=== PATIENT | female | born 1950 | race Caucasian/White ===

== ENCOUNTER → 2018-07-31 07:34 | Outpatient (CLI) | payer OTHER, SELFPAY ==
--- NOTE | 2018-07-31 08:11 | RAD_ITS ---
STUDY: X-RAY - ESOPHAGUS (BARIUM SWALLOW) WITH FLUOROSCOPY REASON FOR EXAM: Female, 67 years old. Dysphagia for solids. TECHNIQUE: 23 view(s) of the esophagus were obtained following swallowing of barium. FLUOROSCOPY TIME (if supplied): (1:06) minutes/seconds COMPARISON: None. FINDINGS: There is no demonstrated esophageal foreign body. There is no demonstrated stricture or mucosal abnormality. Normal gastroesophageal junction, without a demonstrated hiatal hernia. The patient ingested a 12 mm tablet of barium. The tablet is trapped at the level of the upper esophageal sphincter. There is atherosclerotic calcification of the aortic arch with tortuosity of the descending aorta. Normal visualized pulmonary parenchyma. Normal visualized osseous structures of the thorax. RAD/Esophagus Only IMPRESSION: The 12 mm tablet of barium is trapped at the origin of the esophagus at the level of the upper esophageal sphincter. Electronically Signed: Dave Booth, at 8:54 EDT , Service support ,
== END ==
PROVIDERS: Family Provider Family Medicine; PCP Family Medicine; Referring Provider Otolaryngology; Visit Provider Otolaryngology Otolaryngology/Facial Plastic Surgery
DX: R13.10 Dysphagia, unspecified (principal)
CPT/HCPCS: 74220

== ENCOUNTER → 2019-12-24 14:52 | Outpatient (CLI) | payer SELFPAY ==
--- NOTE | 2019-12-24 15:00 | EKG12_ITS ---
Test Reason : PREOP Blood Pressure : / mmHG Vent. Rate : 082 BPM Atrial Rate : 082 BPM P-R Int : 166 ms QRS Dur : 086 ms QT Int : 372 ms P-R-T Axes : 063 049 048 degrees QTc Int : 434 ms Normal sinus rhythm Normal ECG Confirmed by SAMY VALLEJO, JUANJO ([id number]), staff editor VIKY CHOWDHURY ([id number]) on 12/29/2019 9:23:54 AM Referred By: Avinash Thomson Confirmed By:JUANJO PABLO MD
--- NOTE | 2019-12-24 15:14 | RAD_ITS ---
STUDY: X-RAY CHEST REASON FOR EXAM: Female, 69 years old. Pt states pre op x-ray for future knee surgery TECHNIQUE: Frontal and lateral views of the chest. COMPARISON: None. FINDINGS: There is no focal consolidation. Normal size heart. Normal mediastinum and zechariah. Normal visualized pulmonary arteries. There is atherosclerotic calcification of the aortic arch with tortuosity. There are diffuse degenerative changes of the visualized thoracic spine. Normal visualized ribs, clavicles, and shoulders. There is no demonstrated abnormality of the visualized soft tissue structures of the upper abdomen. RAD/Chest PA and Lateral IMPRESSION: No acute cardiopulmonary process. Electronically Signed: Anju Leblanc MD at 17:41 EDT Tel , Service support ,
== END ==
PROVIDERS: PCP Family Medicine; Referring Provider Orthopaedic Surgery; Visit Provider Orthopaedic Surgery
DX: Z01.810 Encounter for preprocedural cardiovascular examination (principal); Z01.811 Encounter for preprocedural respiratory examination
CPT/HCPCS: 71046; 93005

== ENCOUNTER → 2021-11-11 | Outpatient (CLI) | payer SELFPAY, OTHER ==
--- NOTE | 2021-11-11 14:58 | ECHOD_ITS ---
Reason For Study: Murmur Procedure This was a 2D Doppler, Color Flow transthoracic echocardiogram. Exam performed in department. Left Ventricle Normal LV size. Left ventricular systolic function is normal. The estimated ejection fraction is 60 %. Stage 1 diastolic dysfunction. No regional wall motion abnormalities noted. Right Ventricle Normal RV size. Normal systolic function. Atria Normal left atrium. Normal right atrium. Mitral Valve Mild focal mitral valve calcification. Tricuspid Valve Normal tricuspid valve. Mild (1+) tricuspid valve insufficiency. Pulmonary artery systolic pressure is 38 mmHg. Aortic Valve Trisinus/trileaflet aortic valve. Mild focal aortic valve calcification. Peak aortic valve gradient 46 mmHg. Mean aortic valve gradient 25 mmHg. Mild aortic stenosis. Mild (1+) eccentric aortic valve insufficiency. Pulmonic Valve Normal pulmonic valve. Great Vessels Mildly dilated aortic root. The pulmonary artery is normal size. Normal inferior vena cava. Pericardium/Pleural No pericardial effusion. MMode/2D Measurements & Calculations LVIDd: 4.0 cm IVSd: 1.1 cm LVOT diam: 2.1 cm LVIDs: 2.4 cm LVPWd: 1.1 cm LVOT area: 3.6 cm2 RVDd: 3.2 cm FS: 39.5 % Ao root diam: 3.7 cm LAV(MOD-bp): 53.7 ml LVAd ap4: 25.9 cm2 ACS: 1.2 cm LAV(MOD-bp) Indexed: 26.1 ml/m2 LVLd ap4: 7.4 cm LAV(MOD-sp2): 54.8 ml EDV(MOD-sp4): 75.5 ml LAV(MOD-sp4): 46.9 ml EDV(sp4-el): 76.3 ml LVAs ap4: 14.1 cm2 LVLs ap4: 5.9 cm ESV(MOD-sp4): 28.2 ml ESV(sp4-el): 28.6 ml EF(MOD-sp4): 62.7 % EF(sp4-el): 62.5 % SV(MOD-sp4): 47.3 ml SV(sp4-el): 47.7 ml LA A4 area: 17.2 cm2 LA dimension(2D): 3.7 cm RA A4 area: 12.4 cm2 Doppler Measurements & Calculations MV E max dwaine: 75.9 cm/sec Lat Peak E' Dwaine: 7.6 cm/sec Med Peak E' Dwaine: 6.5 cm/sec MV A max dwaine: 97.4 cm/sec E/E' lat: 10.0 E/E' med: 11.8 MV E/A: 0.78 Ao V2 max: 338.8 cm/sec LV V1 max: 121.4 cm/sec SV(LVOT): 90.4 ml Ao max P.9 mmHg LV V1 max P.9 mmHg Ao V2 mean: 238.7 cm/sec LV V1 mean P.2 mmHg Ao mean P.2 mmHg LV V1 mean: 85.5 cm/sec Ao V2 VTI: 70.1 cm LV V1 VTI: 25.4 cm GARY(I,D): 1.3 cm2 GARY(V,D): 1.3 cm2 PA V2 max: 104.4 cm/sec PI end-d dwaine: 84.6 cm/sec TR max dwaine: 294.2 cm/sec TR max P.6 mmHg ECHO/Echo Complete Interpretation Summary Normal LV size. Left ventricular systolic function is normal. The estimated ejection fraction is 60 %. Stage 1 diastolic dysfunction. Mildly dilated aortic root. Mild aortic stenosis. Mild (1+) eccentric aortic valve insufficiency. Pulmonary artery systolic pressure is 38 mmHg. Ordering Physician: Chris Bower Referring Physician: Rajan Pearson Performed By: Yudelka Castro, HOMAR, RVT
== END | disposition home or self-care (01) ==
PROVIDERS: PCP Family Medicine; Referring Provider Internal Medicine Cardiovascular Disease; Visit Provider Internal Medicine Cardiovascular Disease
DX: R01.1 Cardiac murmur, unspecified (principal)
CPT/HCPCS: 93306

== ENCOUNTER → 2022-07-31 | Outpatient (CLI) | payer SELFPAY, OTHER ==
--- NOTE | 2022-07-31 08:36 | EKG12_ITS ---
Test Reason : PRE OP Blood Pressure : / mmHG Vent. Rate : 079 BPM Atrial Rate : 079 BPM P-R Int : 176 ms QRS Dur : 076 ms QT Int : 380 ms P-R-T Axes : -06 072 065 degrees QTc Int : 435 ms Normal sinus rhythm Nonspecific ST abnormality Abnormal ECG Confirmed by CRISTOBAL VALLEJO, MARY ALICE ([id number]), photography editor VIKY CHOWDHURY ([id number]) on 07/31/2022 2:01:28 PM Referred By: COBY CARPENTER Confirmed By:MARY ALIEC JAIN MD
--- NOTE | 2022-07-31 09:00 | RAD_ITS ---
STUDY: X-RAY CHEST REASON FOR EXAM: Female, 71 years old. Preop for back surgery TECHNIQUE: PA and lateral views of the chest. COMPARISON: None. FINDINGS: The lungs are clear and expanded. There is no demonstrated pleural abnormality. Normal size heart. Normal mediastinum and zechariah. Normal visualized pulmonary arteries. Normal visualized aortic arch and descending thoracic aorta. Normal visualized thoracic spine. Normal visualized ribs, clavicles, and shoulders. There is no demonstrated abnormality of the visualized soft tissue structures of the upper abdomen. RAD/Chest PA and Lateral IMPRESSION: Normal x-ray examination of the chest. Electronically Signed: Taye Ortega MD at 9:16 EDT ,
== END | disposition home or self-care (01) ==
PROVIDERS: PCP Nurse Practitioner Family
DX: Z01.812 Encounter for preprocedural laboratory examination (principal)
CPT/HCPCS: 71046; 87081; 93005

== ENCOUNTER → 2022-08-03 | Outpatient (CLI) | payer OTHER, SELFPAY ==
[2022-08-03 11:33] LABS: Hematocrit 42.2 % (37-47); Hemoglobin 13.3 g/dL (12.0-15.0); Mean Corp Hgb Conc 31.5 g/dL (32-36); Mean Corpuscular Hgb 27.2 pg (27.0-32.0); Mean Corpuscular Volume 86.3 fL (81-99); Mean Platelet Vol. 8.4 fl (6.2-12.0); Platelet Count 270 K/mm3 (150-450); RBC Distribution Width CV 13.1 % (11.6-14.6); RBC Distribution Width SD 40.6 fl (35.1-43.9); Red Blood Count 4.89 M/mm3 (4.2-5.4); White Blood Count 8.1 K/mm3 (4.4-11.0)
== END | disposition home or self-care (01) ==
LOC: LAB 11:24
PROVIDERS: PCP Nurse Practitioner Family; Referring Provider Nurse Practitioner Family; Visit Provider Nurse Practitioner Family
DX: Z01.812 Encounter for preprocedural laboratory examination (principal)
CPT/HCPCS: 36415; 85027

== ENCOUNTER → 2023-07-02 | Outpatient (CLI) | payer SELFPAY ==
--- NOTE | 2023-07-02 | IMM_PTH ---
PATHOLOGY RESULTS PATIENT: CHARISSA RAUSCH LOC: [facility] U#:[id number] AGE/SX: 72/F ROOM: RE07/02/[address]: Dr. Avinash Thomson MD : 1950 BED: DIS: 07/02/2023 SPEC #: [id number] RECD: 07/09/23 13:32 STATUS: ERNST RELamar #: [id number] SAVANA: 07/02/23 00:[address]: Avinash Thomson DEPT: IMMUNOHISTOCHEMISTRY RECD BY: Annette Leon ENTERED: 07/09/23 13:37 SP TYPE: IMMUNO OTHR DR: Jane Cardozo, POLICE CRIME SCENE TECHNICIAN-C Tissues: Hip, NOS Procedures: BCL-2 (add) CD20 (add) CD3 (add) CD5 (add) CD79A (add) KI-67 (add) CD3 (initial) PHYSICIAN & INSTITUTION [place] [id number] SPECIMEN INFORMATION: Tissue Source: Right hip Clinical Info: Osteoarthritis Specimen Number: [id number] #1 & 2 CPT code: 60320, 80458 x11 METHODOLOGY: Deparaffinized sections of prefer/formalin-fixed tissue or PAP/DQ stained slides are incubated with monoclonal/polyclonal antibodies/oligonucleotide probes. Localization is made via biotin free immunoperoxidase method. Appropriate controls are performed and reacted as expected. Results on target cell population are indicated in the following table: RESULTS: ANTIBODY / CLONE RESULT Block 1 CD3 (PS1) positive CD5 (SP10) positive CD20 (L26) positive CD79a (11E3) positive BCL-2 (bcl-2/100/D5) positive Ki-67 (30-9) negative Block 2 CD3 (PS1) positive CD5 (SP10) positive CD20 (L26) positive CD79a (11E3) positive BCL-2 (bcl-2/100/D5) positive Ki-67 (30-9) positive, low These tests were developed and their performance characteristics determined by [facility]. They may not have been cleared or approved by the U.S. Food and Drug Administration. The FDA has determined that such clearance or approval is not necessary. The above immunohistochemical/dualISH markers are ordered and reviewed by the Pathologist. INTERPRETATION: Bone and tissue of right hip, total hip resection: Polytypic lymphoid aggregates. AM:daija 07/11/2023
--- NOTE | 2023-07-02 07:15 | FEM_PTH ---
PATHOLOGY RESULTS PATIENT: CHARISSA RAUSCH LOC: [facility] U#:[id number] AGE/SX: 72/F ROOM: RE07/02/[address]: Dr. Avinash Thomson MD : 1950 BED: DIS: 07/02/2023 SPEC #: [id number] RECD: 07/03/23 08:49 STATUS: ERNST RELamar #: [id number] SAVANA: 07/02/23 07:[address]: Avinash Thomson DEPT: SURGICAL PATHOLOGY RECD BY: Gemini Garcia ENTERED: 07/03/23 08:53 SP TYPE: FEM HEAD OTHR DR: Jane Cardozo, MATTRESS MAKER-C [facility] Tissues: Femoral region, NOS Procedures: Decalcification bone/plaque Surgery Specimen Level IV HEADER OPERATION: Right total hip replacement PRE-OP DIAGNOSIS: Unilateral primary osteoarthritis of right hip TISSUE SUBMITTED: Right femoral head bone and soft tissue MICROSCOPIC DIAGNOSIS Bone and tissue of right hip, total hip resection: Severe degenerative joint disease. Benign lymphoid aggregates. Mild synovial hyperplasia and mild chronic inflammation. See comment. AM:daija 07/09/2023 COMMENT Immunohistochemistry ([id number]) supports the above diagnosis. Case has been reviewed in consultation with Dr. Avalos who concurs with the above diagnosis. IDC:[email or web address] MICROSCOPIC DESCRIPTION Slides are reviewed. GROSS DESCRIPTION Received is one container labeled with the patient's name and designated right femoral head bone and soft tissue. The specimen consists of a christiansen femoral head with portion of femoral neck. The femoral head measures 5.0 x 5.0 x 5.0 cm and the femoral neck measures 2.5 cm in length. The articular surface displays prominent osteophyte formation, eburnation and bone erosion. Also present in the specimen container are multiple irregular fragments of bone reamings and pink-yellow soft tissue measuring in aggregate 6.5 x 7.0 x 2.0 cm. Train Starter sections are submitted in two cassettes as follows: 1 - soft tissue, 2 - bone after decalcification. / CHRISSIE:daija 07/03/2023 TC:5 CPT: 69382, 40005
--- OUTSIDE RECORDS SUMMARY | 2023-07-02 19:59 | XMS RPT_ITS | CCD ---
Author Name Unknown Address [address] [place] [address] Organization [facility] Care Team Providers Care Facility Maintenance Manager Name Role Phone ANDREA JOHNSON Consulting Unavailable CHRISTINA BIRMINGHAM Attending Unavailable CHRISTINA BIRMINGHAM Primary Care Unavailable PEPITO BIRMINGHAMANNE ANEL Admitting Unavailable PROVIDER, UNKNOWN Consulting Unavailable ANDREA JOHNSON Consulting Unavailable JESÚS GRIFFIN DR Attending Unavailable JESÚS GRIFFIN DR Primary Care Unavailable JESÚS GRIFFIN DR Admitting Unavailable PROVIDER, UNKNOWN Consulting Unavailable ANDREA JOHNSON Consulting Unavailable JESÚS GRIFFIN DR Attending Unavailable JESÚS GRIFFIN DR Primary Care Unavailable JESÚS GRIFFIN DR Admitting Unavailable PROVIDER, UNKNOWN Consulting Unavailable Results Test Name Value Interpretation Reference Range Facil ity Encounters Encounter Date Encounter Type Care Provider Facility Start: 06-06-2023 ambulatory ANDREA Cifuentes [facility] Start: 05-24-2023 End: 05-24-2023 ambulatory ANDREA JOHNSON [facility] Payers Date Payer Category Payer Unknown [id number] 1950 Unknown [id number] 1950 Unknown [id number] Unknown [id number] Unknown Summary Purpose Family History No Family History Records FoundNo Family History Records Found Advance Directives No Advanced Directives Records FoundNo Advanced Directives Records Found Additional Source Comments INFORMATION SOURCE (unrecogn ized section and content) DATE CREATED AUTHOR AUTHOR'S ORGANIZ ATION 06/07/2023 [facility] FOR RECORDS PERTAINING TO PATIENTS WHO ARE OR HAVE BEEN ENROLLED IN A CHEMICAL DEPENDENCY/SUBSTANCEABUSE PROGRAM, SOME INFORMATION MAY BE OMITTED. This clinical summary was aggregated from multiple sources. Caution should be exercised in using it in the provision of clinical care. This summary normalizes information from multiple sources, and as a consequence, information in this document may materially change the coding, format and clinical context of patient data. In addition, data may be omitted in some cases. CLINICAL DECISIONS SHOULD BE BASED ON THE PRIMARY CLINICAL RECORDS. [facility] [employer], [facility]. provides no warranty or guarantee of the accuracy or completeness of information in this document.
== END | disposition home or self-care (01) ==
LOC: LABSPEC 15:25
PROVIDERS: PCP Nurse Practitioner Family; Referring Provider Orthopaedic Surgery; Visit Provider Orthopaedic Surgery
DX: M16.11 Unilateral primary osteoarthritis, right hip (principal)
CPT/HCPCS: 88305; 88307; 88311; 88341; 88342

== ENCOUNTER → 2024-06-04 | Outpatient (CLI) | payer SELFPAY, OTHER ==
--- NOTE | 2024-06-04 12:49 | ECHOD_ITS ---
Reason For Study: Dyspnea/SOB Procedure This was a 2D Doppler, Color Flow transthoracic echocardiogram. Exam performed in department. Left Ventricle Normal LV size. Left ventricular systolic function is normal. The left ventricular ejection fraction is 60 %. Stage 1 diastolic dysfunction. No regional wall motion abnormalities noted. Right Ventricle Normal RV size. Normal systolic function. Atria Normal left atrium. Normal right atrium. Mitral Valve Mild focal mitral valve calcification of the posterior leaflet. Tricuspid Valve Normal tricuspid valve. Aortic Valve Trisinus/trileaflet aortic valve. Moderate focal aortic valve calcification. Peak aortic valve gradient 60 mmHg. Mean aortic valve gradient 35 mmHg. Moderate to severe aortic stenosis. Pulmonic Valve Normal pulmonic valve. Great Vessels Normal aortic root. The pulmonary artery is normal size. Inferior vena cava collapse with respiration. Pericardium/Pleural No pericardial effusion. MMode/2D Measurements & Calculations LVIDd: 4.2 cm IVSd: 1.1 cm LVOT diam: 2.0 cm LVIDs: 2.8 cm LVPWd: 0.83 cm LVOT area: 3.1 cm2 RVDd: 3.3 cm FS: 32.9 % Ao root diam: 3.7 cm LAV(MOD-bp): 42.6 ml LVAd ap4: 25.0 cm2 ACS: 0.84 cm LAV(MOD-bp) Indexed: 20.7 ml/m2 LVLd ap4: 6.9 cm LAV(MOD-sp2): 43.0 ml EDV(MOD-sp4): 72.8 ml LAV(MOD-sp4): 39.3 ml EDV(sp4-el): 76.8 ml LVAs ap4: 13.3 cm2 LVLs ap4: 5.6 cm ESV(MOD-sp4): 26.7 ml ESV(sp4-el): 27.0 ml EF(MOD-sp4): 63.4 % EF(sp4-el): 64.9 % SV(MOD-sp4): 46.1 ml SV(sp4-el): 49.9 ml Ao sinus diam: 3.4 cm SI(MOD-sp4): 22.4 ml/m2 Ao ST Junction: 2.5 cm Aortic Valve Planimetry: 0.72 cm2 LA A4 area: 15.1 cm2 LA dimension(2D): 3.7 cm TAPSE: 1.9 cm RA A4 area: 14.6 cm2 Time Measurements MV dec time: 0.20 sec Doppler Measurements & Calculations MV E max dwaine: 70.5 cm/sec Lat Peak E' Dwaine: 8.6 cm/sec Med Peak E' Dwaine: 6.9 cm/sec MV A max dwaine: 95.7 cm/sec E/E' lat: 8.2 E/E' med: 10.2 MV E/A: 0.74 MV V2 max: 119.4 cm/sec MV P1/2t max dwaine: 97.9 cm/sec Ao V2 max: 385.9 cm/sec MV max P.7 mmHg MV P1/2t: 71.7 msec Ao max P.6 mmHg MV V2 mean: 65.5 cm/sec MV dec slope: 399.9 cm/sec2 Ao V2 mean: 281.6 cm/sec MV mean P.0 mmHg Ao mean P.4 mmHg MV V2 VTI: 23.7 cm MVA(P1/2t): 3.1 cm2 Ao V2 VTI: 92.0 cm MVA(VTI): 2.5 cm2 AV (velocity ratio): 0.21 GARY(I,D): 0.65 cm2 GARY(V,D): 0.76 cm2 LV V1 max: 94.9 cm/sec SV(LVOT): 59.7 ml PA V2 max: 95.9 cm/sec LV V1 max P.6 mmHg PA V2 mean: 70.5 cm/sec LV V1 mean P.8 mmHg LV V1 mean: 62.2 cm/sec LV V1 VTI: 19.3 cm ECHO/Echo Complete Interpretation Summary Normal LV size. Left ventricular systolic function is normal. The left ventricular ejection fraction is 60 %. Stage 1 diastolic dysfunction. Moderate focal aortic valve calcification. Mean aortic valve gradient 35 mmHg. Moderate to severe aortic stenosis. Compared to the previous echocardiogram the aortic valve gradients are worse. Ordering Physician: Indiana Weinberg Referring Physician: Indiana Weinberg Performed By: Trenton Mayen RCS
== END | disposition home or self-care (01) ==
PROVIDERS: PCP Family Medicine; Referring Provider Physician Assistant Medical; Visit Provider Physician Assistant Medical
DX: I35.0 Nonrheumatic aortic (valve) stenosis (principal); R07.9 Chest pain, unspecified
CPT/HCPCS: 93306

== ENCOUNTER → 2024-06-06 | Outpatient (CLI) | payer OTHER, SELFPAY ==
--- NOTE | 2024-06-06 09:17 | RAD_ITS ---
EXAM: XR CHEST, 2 VIEWS CLINICAL INDICATION: CP TECHNIQUE: Frontal and lateral views of the chest. COMPARISON: 07/31/2022 FINDINGS: LUNGS AND PLEURAL SPACES: Unremarkable. No consolidation or edema. No pneumothorax. No effusion. HEART: Unremarkable. Cardiac silhouette not enlarged. MEDIASTINUM: Central airways and mediastinal contour are unremarkable. BONES/JOINTS: Unremarkable. No acute fracture. SOFT TISSUES: Unremarkable. RAD/Chest PA and Lateral IMPRESSION: No radiographic evidence of acute cardiopulmonary disease. Electronically Signed: Nagi Rocha MD at 0:06 EST ,
[2024-06-06 09:24] LABS: Absolute Lymphocyte Count 2.19 X10^3/uL (0.83-4.51); Absolute Neutrophil Count 2.6 X10^3/uL (2.0-7.7); Basophil# 0.02 X10^3/uL; Basophil% 0.4 % (0-1); Eosinophil# 0.12 X10^3/uL; Eosinophils% 2.2 % (0-5); Hematocrit 42.5 % (37-47); Hemoglobin 13.3 g/dL (12.0-15.0); Lymphocyte # 2.19 X10^3/ul (0.83-4.51); Lymphocyte % 40.3 % (19-41); Mean Corp Hgb Conc 31.3 g/dL (32-36); Mean Corpuscular Hgb 26.5 pg (27.0-32.0); Mean Corpuscular Volume 84.8 fL (81-99); Mean Platelet Vol. 8.7 fl (6.2-12.0); Monocyte# 0.44 X10^3/uL; Monocyte% 8.1 % (0-10); NRBC Flagged by Analyzer 0 % (0-5); Neutrophil # 2.64 X10^3/uL (2.7-7.7); Neutrophil % 48.6 % (47-70); Platelet Count 251 K/mm3 (150-450); RBC Distribution Width CV 13.2 % (11.6-14.6); RBC Distribution Width SD 41.1 fl (35.1-43.9); Red Blood Count 5.01 M/mm3 (4.2-5.4); White Blood Count 5.4 K/mm3 (4.4-11.0)
[2024-06-06 09:34] LABS: Prothrombin Time (Protime)PT. 12.9 SECONDS (11.7-14.9)
[2024-06-06 09:35] LABS: Partial Thromboplast Time 29.2 Seconds (24.1-36.2)
[2024-06-06 10:03] LABS: Anion Gap 3 (5-15); BUN 14 mg/dL (7-18); BUN/Creat Ratio 15.5 RATIO (10-20); Calcium,Total 9.3 mg/dL (8.5-10.1); Chloride 110 mmol/L (98-107); EST Glomerular Filtration Rate 65 mL/min (>60); Est Glom Filt Rate - Afr Amer 78 mL/min (>60); Glucose 104 mg/dL (74-106); Potassium 4.4 mmol/L (3.5-5.1); Sodium Level 140 mmol/L (136-145)
== END | disposition home or self-care (01) ==
LOC: LAB 08:59
PROVIDERS: PCP Family Medicine; Referring Provider Physician Assistant Medical; Visit Provider Physician Assistant Medical
DX: R07.9 Chest pain, unspecified (principal); I35.0 Nonrheumatic aortic (valve) stenosis

== ENCOUNTER 2024-06-09 07:31 | Day surgery (SDC) | payer SELFPAY, OTHER ==
[2024-06-06 10:59] VITALS: BMI 34.5
--- NOTE | 2024-06-09 09:33 | CL.D_ITS ---
Patient Name: CHARISSA RAUSCH Study Date: 06/09/2024 Performing: Chris Bower MD Ht: 66 inches 167.64 cm : 1950 Wt: 214 lbs 97.07 kg Age: 73 Gender: female BSA: 2.06 PROCEDURE(S) PERFORMED DC01-(18209)LHC/COR/LV CLINICAL PROFILE AND INDICATIONS Indications: Valvular Disease Heart Failure: None Stress/Imaging Stress/Image Study Performed: No CAD Presentations: Other: SOB CONCLUSIONS Non obstructive coronary arteries Moderate to severe aortic stenosis RECOMMENDATIONS Consider TAVR. DESCRIPTION OF PROCEDURE The patient arrived to the procedure lab. The risks and benefits of the procedure as well as a full description of our services here and current unavailability of surgical backup were fully explained to the patient and/or their significant other prior to the catheterization. The Timeout was completed, verifying the correct patient and procedure. The patient's procedural site was prepped and draped in the usual fashion. Local anesthetic was given subcutaneously to right radial region with Lidocaine 2%. Using a modified Seldinger technique, arterial access was obtained via the right radial artery, a 6Fr sheath was inserted. Left Coronary Artery selective angiography was performed in multiple views using a 5 Fr. 4.0 Hamden catheter. Right Coronary Artery selective angiography was then performed in multiple views using a 5 Fr. 4.0 Hamden catheter. Left Ventriculography was performed in LEWIS projection using a 5 Fr. Pigtail catheter. LV to AO pullback pressures were then recorded.The arterial sheath was pulled and a TR Band was applied for hemostasis. 10cc air CORONARY ANGIOGRAPHY DOMINANCE: Right Dominant LEFT HEART ASSESSMENT Left Ventricular Ejection Fraction: by LV Gram 65 % Normal LV wall motion Normal Left Ventricular systolic function LEFT MAIN: Mild calcification, Mild luminal irregularities LEFT ANTERIOR DESCENDING ARTERY: Moderate calcification, Mild luminal irregularities less than 30% SEPTAL: Moderate luminal irregularities up to 50% CIRCUMFLEX ARTERY: Mild luminal irregularities RIGHT CORONARY ARTERY: Mild luminal irregularities less than 30% VALVE FINDINGS: Aortic Valve Stenosis - moderate to Severe COMPLICATIONS No Complications PROCEDURE MEDICATIONS Fentanyl 50 mcg IV Versed 1 mg IV Versed 1 mg IV Oxygen: 2 L/min via nasal cannula Baby Aspirin (81mg) 4 Tabs PO @ 06/09/2024 07:50:16 Heparin given IA 06/09/2024 09:03:00 Verapamil 2.5mg, Ntg 100mcgs, 3000 units of Heparin given IA 06/09/2024 09:03:00 SUMMARY OF HEMODYNAMIC DATA Time AIR REST ECG 07:52:03 AO 146/78 (108) SA 09:11:24 LV 171/14, 23 09:19:37 LV 172/15, 22 09:19:45 LV 174/13, 31 09:20:27 LVp 167/19, 30 09:20:37 AOp 153/79 (113) 09:20:44 09:33:00 Signed By Chris Bower MD On 06/09/2024 09:33:01 Chris Bower MD
== END 2024-06-09 11:05 | disposition home or self-care (01) ==
PROVIDERS: PCP Family Medicine; Referring Provider Internal Medicine Cardiovascular Disease; Visit Provider Internal Medicine Cardiovascular Disease
DX: I35.0 Nonrheumatic aortic (valve) stenosis (principal); E66.9 Obesity, unspecified; Z68.34 Body mass index [BMI] 34.0-34.9, adult; Z79.899 Other long term (current) drug therapy
CPT/HCPCS: 93458; 99152; 99153; Q9967; C1769; C1894